=== PATIENT | male | born 1965 | race Caucasian/White ===

== ENCOUNTER 2018-10-02 03:03 | Emergency (ER) | payer BC, OTHER ==
[2018-10-02 04:21] VITALS: BP 117/78; PULSE 82; TEMP 98; BMI 41.5
[2018-10-02] MEDS ORDERED: ALBUTEROL SO4 2.5/IPRATROPIUM 0.5 INH SOL 3 ML VIAL.NEB. NEB ONE ×2 (04:23→04:36)
[2018-10-02] MEDS ORDERED: methylPREDNISolone NA SUCC 125 MG/2 ML VIAL IVPUSH ONE (04:23)
--- NOTE | 2018-10-02 04:26 | PDOC ---
History of Present Illness - General Chief Complaint: Asthma Stated Complaint: ASTHMA Time Seen by Provider: 10/02/18 04:13 History Source: Patient Exam Limitations: No Limitations - History of Present Illness Initial Comments: 10/03/18 07:44 53yo M with PMH of Asthma, Sleep Apnea presenting to ED with asthma exacerbation. Pt states he had been feeling short of breath, having coughs productive of yellow sputum x5d. He has been using nebulizer treatments and rescue inhaler without relief. Last exacerbation was in February 2018 for which he went to his PMD office and as given steroids. He has never been hospitalized or intubated for asthma. Endorses chest tightness. Denies n/v/d, fevers, chills , headache, leg swelling, recent travel, recent surgery, family history of [place]. Never smoked. PMD: [place] PMH: see hpi PSH; None Meds: see med rec Allergies: PCN Past History - Past Medical History Allergies/Adverse Reactions: Allergies Allergy/AdvReac Type Severity Reaction Status Date / Time Penicillins Allergy Verified 10/02/18 04:21 shellfish derived Allergy Verified 10/02/18 04:21 Home Medications: Ambulatory Orders Methylprednisolone [Medrol Dose Farhan] 4 mg PO ASDIR #21 tablet 10/02/18 - Suicide/Smoking/Psychosocial Hx Smoking History: Never smoked Hx Alcohol Use: No Drug/Substance Use Hx: No Review of Systems - Review of Systems Constitutional: No: Symptoms Reported HEENTM: No: Symptoms Reported Respiratory: Yes: See HPI Cardiac (ROS): Yes: See HPI ABD/GI: No: Symptoms Reported : No: Symptoms Reported Musculoskeletal: No: Symptoms Reported Integumentary: No: Symptoms Reported Neurological: No: Symptoms reported *Physical Exam - Vital Signs Last Vital Signs Temp Pulse Resp BP Pulse Ox 98 F 82 18 117/78 96 10/02/18 03:03 10/02/18 03:03 10/02/18 03:03 10/02/18 03:03 10/02/18 03:03 - Physical Exam General Appearance: Yes: Appropriately Dressed, Mild Distress, Obese HEENT: positive: EOMI, RIKKI, Normal ENT Inspection Neck: positive: Trachea midline, Supple. negative: Stridor, Lymphadenopathy (R) , Lymphadenopathy (L) Respiratory/Chest: positive: Wheezing. negative: Chest Tender, Respiratory Distress, Accessory Muscle Use, Crackles, Rhonchi Cardiovascular: positive: Regular Rhythm, Regular Rate, S1, S2. negative: Edema , JVD, Murmur Vascular Pulses: Dorsalis-Pedis (R): 2+, Doralis-Pedis (L): 2+ Gastrointestinal/Abdominal: positive: Normal Bowel Sounds, Soft, Distended. negative: Guarding, Rebound, Tenderness, Hernia Musculoskeletal: negative: CVA Tenderness Extremity: positive: Normal Capillary Refill Integumentary: positive: Normal Color, Dry, Warm Neurologic: positive: construction foreman II-XII NML intact, Fully Oriented, Alert, Normal Mood/ Affect, Motor Strength 06/23 ED Treatment Course - LABORATORY CBC & Chemistry Diagram: 10/02/18 04:44 10/02/18 04:44 - RADIOLOGY Radiology Studies Ordered: Category Date Time Status CHEST X-RAY PORTABLE* [RAD] Stat Radiology 10/02/18 04:21 Ordered Medical Decision Making - Medical Decision Making 10/03/18 07:48 53yo M with PMH of Asthma, Sleep Apnea presenting to ED with asthma exacerbation. Pt states he had been feeling short of breath, having coughs productive of yellow sputum x5d. He has been using nebulizer treatments and rescue inhaler without relief. Last exacerbation was in February 2018 for which he went to his PMD office and as given steroids. He has never been hospitalized or intubated for asthma. Endorses chest tightness. Denies n/v/d, fevers, chills , headache, leg swelling, recent travel, recent surgery, family history of [place]. Never smoked. Vitals: wnl PE: diffuse wheezing. likely asthma. will r/o acs. low risk for PE, does not need dimer or ct scan. duonebs, solumedrol, labs including trop, bnp, cxr cxr normal ekg: no addison or depressions labs wnl patient stating he is feeling much better. wheezing still heard however patient states symptoms have improved. has pmd f/u. will give rx for medrol dose pack. given return precautions. *DC/Admit/Observation/Transfer Diagnosis at time of Disposition: Asthma attack Qualifiers: Asthma severity: unspecified severity Asthma persistence: unspecified Qualified Code(s): J45.901 - Unspecified asthma with (acute) exacerbation - Discharge Dispostion Disposition: HOME Condition at time of disposition: Improved Decision to Admit order: No - Prescriptions Prescriptions: Methylprednisolone [Medrol Dose Farhan] 4 mg PO ASDIR #21 tablet - Referrals Referrals: Hailee Saenz MD [Primary Care Provider] - - Patient Instructions Printed Discharge Instructions: Asthma -- Adult Additional Instructions: You were seen in the emergency room for an asthma attack. Your blood work and xray are normal. A prescription for Medrol dose pack was sent to your pharmacy, please take as directed. I recommend making an appointment with your doctor and/or mechanical development engineer sometime this week or early next week regarding this ED visit. Come back to the emergency room if your breathing gets worse, you have chest pain, you pass out, you have worsening cough or if any new concerning symptom develops. Thank you - Post Discharge Activity
[2018-10-02] MEDS ORDERED: methylPREDNISolone NA SUCC 125 MG/2 ML VIAL ONE (04:37)
[2018-10-02] MEDS ORDERED: IPRATROPIUM BR 0.02% 0.5 MG/2.5 ML VIAL.NEB. NEB ONE (04:38)
[2018-10-02] MEDS ORDERED: ALBUTEROL SO4 0.083% IH SOL 2.5 MG/3 ML VIAL.NEB. NEB ONE (04:38)
[2018-10-02 05:04] LABS: BASO % 0.4 % (0-2.0); EOS % 5.5 % (0-4.5); HEMATOCRIT 44.9 % (35.4-49); HEMOGLOBIN 15.2 GM/dL (11.7-16.9); LYMPH % 22.5 % (8-40); MCH 30.2 pg (25.7-33.7); MCHC 33.9 g/dl (32.0-35.9); MEAN CELL VOLUME 89.1 fl (80-96); MEAN PLT VOLUME 8.1 fl (7.5-11.1); MONO % 8.2 % (3.8-10.2); NEUT % 63.4 % (42.8-82.8); PLATELET COUNT 208 K/MM3 (134-434); RBC 5.04 M/mm3 (4.00-5.60); RDW 13.7 % (11.9-15.9); WHITE BLOOD COUNT 7.7 K/mm3 (4.0-10.0)
--- NOTE | 2018-10-02 05:14 | PDOC ---
Documentation entered by Sarthak Finley SCRIBE, acting as scribe for Imani Chapa DO. Imani Chapa DO: This documentation has been prepared by the Tushar quezada Elijah, SCRIBE, under my direction and personally reviewed by me in its entirety. I confirm that the documentation accurately reflects all work , treatment, procedures, and medical decision making performed by me. Attending Attestation - Resident Resident Name: Sa Shirleyira - ED Attending Attestation I have performed the following: I have examined & evaluated the patient, The case was reviewed & discussed with the resident, I agree w/resident's findings & plan - HPI HPI: 10/02/18 04:22 Patient is a 53 year old male with a significant past medical history of Sleep Apnea and Asthma who presents to the ED with Wheezing, cough and SOB lasting for x5 days. Patient noted that the cough is productive of yellow sputum and has tried taking a nebulizer to alleviate his symptoms with no relief. Patient could not sleep tonight secondary to his symptoms prompting the visit to the ED. Denies fever, chills, chest pain and leg swelling. Allergies: Penicillins, Shellfish Derived PCP: Dr. Dhillon - Physicial Exam PE: 10/02/18 04:26 Agree with Resident's exam. - Medical Decision Making 10/02/18 04:59 53-year-old male with asthma symptoms Patient has used multiple inhaler doses as well as nebulizer treatments at home without relief EKG shows no acute abnormalities Patient received Solu-Medrol 125 mg, DuoNeb's 3 Plan for reevaluation and if not improved will hold for observation/admission
[2018-10-02 05:27] LABS: ALBUMIN 3.8 g/dl (3.4-5.0); BILIRUBIN,TOTAL 0.4 mg/dL (0.2-1); BLOOD UREA NITROGEN 13.9 mg/dL (7-18); CALCIUM 8.7 mg/dL (8.5-10.1); POTASSIUM 4.1 mmol/L (3.5-5.1); TOT PROT 7.2 g/dl (6.4-8.2)
[2018-10-02 05:40] LABS: INR 1.04 (0.83-1.09); PROTHROMBIN TIME (PATIENT) 12.3 SEC (9.7-13.0)
--- NOTE | 2018-10-02 10:49 | EKG ---
Test Reason : Blood Pressure : / mmHG Vent. Rate : 082 BPM Atrial Rate : 082 BPM P-R Int : 186 ms QRS Dur : 084 ms QT Int : 382 ms P-R-T Axes : 027 006 025 degrees QTc Int : 446 ms NORMAL SINUS RHYTHM NORMAL ECG NO PREVIOUS ECGS AVAILABLE Confirmed by STNOE LANCE, EDINSON ([id number]) on 10/02/2018 10:49:34 AM Referred By: Confirmed By:EDINSON RITTER MD
== END 2018-10-02 05:57 | disposition home or self-care (01) ==
LOC: JER 03:03
PROC: 3E0333Z Introduction of Anti-inflammatory into Peripheral Vein, Percutaneous Approach (ICD-10-PCS; principal; 2018-10-02)
PROC: 3E0F7GC Introduction of Other Therapeutic Substance into Respiratory Tract, Via Natural or Artificial Opening (ICD-10-PCS; 2018-10-02)
DX: J45.901 Unspecified asthma with (acute) exacerbation (principal); G47.30 Sleep apnea, unspecified
CPT/HCPCS: 36415; 71045-TC-FY; 80053; 83880; 84484; 85025; 85610; 93005; 93010; 99282-25

== ENCOUNTER 2020-11-10 21:16 | Observation (INO) | payer OTHER ==
[2020-11-10 21:45] VITALS: BP 132/87; PULSE 84; TEMP 98; BMI 35.6
[2020-11-10] MEDS ORDERED: ACETAMINOPHEN 1000 MG/100 ML VIAL (NON FORMULARY) IVPB ONE (22:09)
[2020-11-10] MEDS ORDERED: SODIUM CHLORIDE 0.9% 500 ML INFUS.BAG IV ONE (22:12)
[2020-11-10] MEDS ORDERED: ACETAMINOPHEN INJECTION 100 ML IVPB ONE (22:13)
[2020-11-10 22:31] LABS: BASO % 0.7 % (0-2.0); EOS % 1.9 % (0-4.5); HEMATOCRIT 41.5 % (35.4-49); HEMOGLOBIN 14.1 GM/dL (11.7-16.9); LYMPH % 21.1 % (8-40); MCH 30.1 pg (25.7-33.7); MCHC 33.9 g/dl (32.0-35.9); MEAN CELL VOLUME 88.8 fl (80-96); MONO % 7.2 % (3.8-10.2); NEUT % 69.1 % (42.8-82.8); PLATELET COUNT 209 10^3/uL (134-434); RBC 4.67 M/mm3 (4.00-5.60); RDW 13.8 % (11.9-15.9); WHITE BLOOD COUNT 8.1 K/mm3 (4.0-10.0)
[2020-11-10 22:40] LABS: PROTHROMBIN TIME (PATIENT) 12.3 SEC (9.7-13.0)
[2020-11-10 22:42] LABS: ACTIVATED PTT 28.5 SECONDS (25.2-36.5)
[2020-11-10 22:59] LABS: CHLORIDE 105 mmol/L (98-107); SODIUM 140 mmol/L (136-145)
[2020-11-10 23:01] LABS: CALCIUM 8.5 mg/dL (8.5-10.1)
[2020-11-10 23:02] LABS: ALBUMIN 3.6 g/dl (3.4-5.0); ANION GAP 7 MMOL/L (8-16); BLOOD UREA NITROGEN 15.3 mg/dL (7-18); CO2 27 mmol/L (21-32); GLUCOSE,RANDOM 130 mg/dL (74-106); MAGNESIUM 2.2 mg/dL (1.8-2.4)
[2020-11-10 23:05] LABS: CREATININE 1.1 mg/dL (0.55-1.3); SGOT/AST 22 U/L (15-37); SGPT/ALT 27 U/L (13-61)
[2020-11-10 23:07] LABS: BILIRUBIN,TOTAL 0.4 mg/dL (0.2-1); TOT PROT 7.4 g/dl (6.4-8.2)
[2020-11-10 23:08] LABS: ALK PHOS 123 U/L (45-117)
[2020-11-11 00:10] LABS: N-TERMINAL BNP 38.8 pg/ml (5-125)
[2020-11-11] MEDS ORDERED: ASPIRIN 81 MG CHEWABLE TABLETS PO ONE (01:05)
[2020-11-11] MEDS ORDERED: ASPIRIN 81 MG CHEWABLE TABLETS ONE (01:35)
[2020-11-11] MEDS ORDERED: ALBUTEROL SO4 0.083% IH SOL 2.5 MG/3 ML VIAL.NEB. NEB PRN (03:16)
[2020-11-11] MEDS ORDERED: ALBUTEROL SO4 HFA INHALER IH SCH (06:00)
[2020-11-11] MEDS ORDERED: ENOXAPARIN NA (PORCINE) 40 MG/0.4 ML DISP.SYRIN SQ SCH (10:00)
== END 2020-11-11 04:55 | disposition left against medical advice (07) ==
LOC: JER 21:16 → JERBED 11-11 01:06
PROVIDERS: ADMIT Internal Medicine
PROC: 3E0337Z Introduction of Electrolytic and Water Balance Substance into Peripheral Vein, Percutaneous Approach (ICD-10-PCS; principal; 2020-11-11)
PROC: 3E033NZ Introduction of Analgesics, Hypnotics, Sedatives into Peripheral Vein, Percutaneous Approach (ICD-10-PCS; 2020-11-11)
DX: R07.9 Chest pain, unspecified (principal); R51.9 Headache, unspecified; J45.909 Unspecified asthma, uncomplicated; G47.30 Sleep apnea, unspecified; F41.9 Anxiety disorder, unspecified; Z99.81 Dependence on supplemental oxygen; Z88.0 Allergy status to penicillin; Z91.013 Allergy to seafood
CPT/HCPCS: 36415; 70450-TC; 71045-TC-FY; 71275-TC; 80053; 82550; 82553; 83735; 83880; 84484; 85025; 85610; 85730; 93005; 93010; 96361; 96374; 99285-25; C9803; G0378; J0131; U0003; U0005

== ENCOUNTER 2021-02-14 23:41 | Emergency (ER) | payer OTHER ==
[2021-02-15 00:14] VITALS: BP 137/82; PULSE 94; TEMP 98.5; BMI 36.0
[2021-02-18 02:06] LABS: SARS-CoV-2 NAA Detected (Not Detected)
== END 2021-02-15 02:12 | disposition home or self-care (01) ==
LOC: JER 23:41
DX: R51.9 Headache, unspecified (principal); R09.81 Nasal congestion; R05.1 Acute cough
CPT/HCPCS: 87804; 99283-25; C9803; U0003; U0005

== ENCOUNTER 2023-10-26 14:22 | Emergency (ER) | payer OTHER ==
[2023-10-26 14:29] VITALS: BP 128/76; PULSE 79; RESP 18; TEMP 97.7; BMI 36.0
== END 2023-10-26 19:53 | disposition home or self-care (01) ==
LOC: JER 14:22
DX: L03.115 Cellulitis of right lower limb (principal); M79.671 Pain in right foot
CPT/HCPCS: 93970-TC; 99284-25